=== PATIENT | male | born 1980 | race Caucasian/White ===

== ENCOUNTER 2022-03-29 12:52 | Outpatient (CLI) | payer OTHER ==
[~2022-03-29 12:52] MED LIST: IMODIUM A-D2 MG PO; LEVSIN/SL0.125 MG SL; PROTONIX20 MG PO
== END 2022-03-29 12:56 | disposition home or self-care (01) ==
LOC: RAD 12:52
PROVIDERS: ATTEND Orthopaedic Surgery
DX: M25.561 Pain in right knee (principal)

== ENCOUNTER 2023-07-29 07:56 | Outpatient (CLI) | payer OTHER | END 2023-07-29 08:07 | disposition home or self-care (01) | LOC: RAD 07:56 | PROVIDERS: ATTEND Internal Medicine Cardiovascular Disease | DX: I10 Essential (primary) hypertension (principal) ==